=== PATIENT | female | born 1990 | race Caucasian/White ===

== ENCOUNTER 2017-01-18 00:59 | Emergency (ER) | payer SELFPAY ==
[~2017-01-18] VITALS: Ht 154.9 cm; Wt 52.3 kg
[2017-01-18 01:02] VITALS: BP 129/70
== END 2017-01-18 03:05 | disposition left against medical advice (07) ==
LOC: EMS 01:00
DX: S61.304A Unspecified open wound of right ring finger with damage to nail, initial encounter (principal); X58.XXXA Exposure to other specified factors, initial encounter; Y93.89 Activity, other specified; Y92.89 Other specified places as the place of occurrence of the external cause; Y99.8 Other external cause status; Z53.21 Procedure and treatment not carried out due to patient leaving prior to being seen by health care provider

== ENCOUNTER 2017-01-18 03:42 | Emergency (ER) | payer OTHER ==
[~2017-01-18] VITALS: Ht 157.5 cm; Wt 52.3 kg
[2017-01-18] MEDS ORDERED: HYDROCODONE/ACETAMINOPHEN 5-325 MG TABLET PO ONE (04:30)
[2017-01-18 05:15] VITALS: BP 123/75
== END 2017-01-18 05:20 | disposition home or self-care (01) ==
LOC: EMS 03:43
DX: S61.304A Unspecified open wound of right ring finger with damage to nail, initial encounter (principal); X58.XXXA Exposure to other specified factors, initial encounter; Y93.9 Activity, unspecified; Y92.9 Unspecified place or not applicable; Y99.9 Unspecified external cause status
CPT/HCPCS: 99283